=== PATIENT | female | born 1980 | race Two or more races ===

== ENCOUNTER 2020-03-05 20:00 | Emergency (ER) | payer BC ==
[~2020-03-05] VITALS: Ht 170.2 cm; Wt 50.8 kg
--- NOTE | 2020-03-05 20:18 | NUR ---
MOUTH SORES X 3D; SHE THINKS ITS INFECTED AND NEEDS ATB. TO ER BED 2
--- NOTE | 2020-03-05 20:43 | NUR ---
Patient discharged to home in stable condition. Written and verbal after care instructions given. Patient verbalizes understanding of instruction.
[2020-03-05 20:44] VITALS: BP 111/55
== END 2020-03-05 20:44 | disposition home or self-care (01) ==
LOC: ER 20:03
DX: K05.10 Chronic gingivitis, plaque induced (principal)